=== PATIENT | male | born 1945 | race Caucasian/White ===

== ENCOUNTER → 2021-07-09 10:13 | Outpatient (CLI) | payer MEDICARE, SELFPAY ==
--- NOTE | 2021-07-09 | DI.NM.S_ITS ---
PROCEDURE: NM SEA PERF SPECT R&S PHARM Rest and pharmacological stress myocardial perfusion SPECT with gated imaging and ejection fraction RADIOPHARMACEUTICAL: 12.5 mCi Tc-99m tetrafosmin IV at rest and 24.9 mCi Tc-99m tetrafosmin IV at peak effect of pharmacological stress. Clo-agr-bplkifaw was performed. INDICATIONS: Chest pain, unspecified TECHNIQUE: Radiopharmaceutical was injected at peak stress test, and also at rest. SPECT images were obtained. SPECT myocardial perfusion images were displayed in short axis, horizontal long axis, and vertical long axis views. Gated images were reviewed using Pegaste[employer] software. COMPARISON: None. CARDIAC STRESS: Juan Daniel protocol 3 minutes, 30 seconds; 4.0 METS, 32% JENNIFER. Did not achieve target heart rate. Had chest pain on the treadmill so switched to pharmacologic stress testing using regadenoson. Chest pain continued up to an hour after patient stopped exercising. Hemodynamic data: There is normal blood pressure and heart rate response to exercise and pharmacologic stress. Symptoms: The patient had anginal chest pain. EKG: Sinus rhythm, [address] segment elevations V1 and V2, [address] segment depressions V5 and V6. FINDINGS: Raw data: There is good myocardial uptake of radiotracer. No significant motion artifacts. Mfsw-xg-mkksn ratio is 0.34 (normal is less than 0.38 for tetrafosmin tracer). Left ventricle function: Gated images demonstrate normal left ventricular wall thickening. No segmental wall motion abnormalities. No transient ischemic dilation; TID is 1.15 (normal less than 1.3). Left ventricle resting end diastolic volume is 103 mL. Left ventricle stress ejection fraction is >75%; normal range is above 45%. Myocardial perfusion: Large size, moderate intensity reversible defect involving the entire lateral wall. IMPRESSION: 1. Perfusion images concerning for inducible ischemia in the lateral wall. 2. Stress ECG abnormal with both exercise and pharmacologic stress. 3. Exercise induced anginal chest pain. The patient was monitored in the nuclear lab until resolution of his symptoms. The abnormality of his test was discussed in detail with him. It was recommended that he proceed for immediate cardiac evaluation however he refused stating that he was leaving immediately for an upcoming trip planned to visit family out of town. He was counseled on dialing 911 should he get any type of chest pain. He was also counseled to avoid overexerting himself. Unfortunately, he left the nuclear lab AMA. Test results were discussed with nursing staff at the ordering provider's office. Recommendations made to find out where the patient was going on vacation and provide him with a prescription for nitroglycerin. Dictated by: Kelle Salazar D.O. on 07/09/2021 at 17:06 Approved by: Kelle Salazar M.D. on 07/09/2021 at 17:18
[2021-07-09 11:29] LABS: COVID19 -Nasal RAPID Negative (Negative)
== END ==
PROVIDERS: Radiology Diagnostic Radiology; Family Provider Family Medicine; PCP Family Medicine; Referring Provider Family Medicine; Visit Provider Family Medicine
DX: R07.9 Chest pain, unspecified (principal); I20.8 Other forms of angina pectoris; R94.39 Abnormal result of other cardiovascular function study; Z20.822 Contact with and (suspected) exposure to COVID-19
CPT/HCPCS: 78452; 87635; 93017; A9502; J2785